=== PATIENT | male | born 1980 ===

== ENCOUNTER 2025-09-25 10:19 | Day surgery (SDC) | payer OTHER, SELFPAY ==
[2025-09-19 15:49] VITALS: BMI 30.7
[2025-09-20 16:25] VITALS: BMI 29.7
--- NOTE | 2025-09-25 | ECG_ITS ---
Test Reason : PREOP Blood Pressure : */* mmHG Vent. Rate : 139 BPM Atrial Rate : 139 BPM P-R Int : 134 ms QRS Dur : 86 ms QT Int : 282 ms P-R-T Axes : 32 27 42 degrees QTcB Int : 429 ms Sinus tachycardia Otherwise normal ECG No previous ECGs available Referred By: Herminia Gamino Electronically Signed By: ROSA YE
[2025-09-25 10:30] VITALS: BP 138/92; PULSE 132; RESP 20; TEMP 36.4; O2SAT 97
--- NOTE | 2025-09-25 11:03 | PC.NURSE ---
chrissy hr 130s-150s denies c/p denies dizziness sts hr elevated since last night. seen by pcp and end polisher echo, ekg,ct chest and stress tested completed by cardiollogist dr kay aware ekg ordered. pt aware pwd nad
--- NOTE | 2025-09-25 11:17 | PC.NURSE ---
pt resting comfortably on his phone denies c/p/sob/dizziness ekg completed
--- NOTE | 2025-09-25 11:22 | PC.NURSE ---
pt last dose of propanolol was 3 days ago stop using sts doesnot work everyone
--- NOTE | 2025-09-25 13:16 | HO.ANESPROP2 ---
HPI - Anesthesia Eval Consult details Narrative: 45 yo M presenting for bilateral eye muscle surgery FOR[facility]LY [facility] Past Medical History Medical History (Updated 09/20/25 @ 16:31 by Connie Cano, JOSEPH) Disorder of right median nerve Obesity (BMI 30.0-34.9) Prediabetes Panic disorder Moderate obstructive sleep apnea Mild cognitive impairment MDD (major depressive disorder), recurrent episode, moderate Insomnia Hypertriglyceridemia Erectile dysfunction Allergic rhinitis Anxiety GERD (gastroesophageal reflux disease) Tachycardia HTN (hypertension) Syncope Chest pain Family History Family history of problems with anesthesia: No Surgical History Surgical History (Updated 09/19/25 @ 15:49 by Connie Cano, RN) History of hip surgery Hx of right inguinal hernia repair Hx of cervical spine surgery History of Problems with Anesthesia: No Social History Social History (Updated 09/20/25 @ 16:27 by Connie Cano, RN) Are you a primary home child care provider to a significant other at home: No Do you presently have visiting nurse or other home services: No Patient Tobacco Use Status: Former Tobacco user Tobacco use type: Cigarette Smoked in Last 30 Days: No Use of substances other than those prescribed or required for medical reasons: No Have you been hit, kicked, punched, or otherwise hurt by someone within the past year? If so, by whom?: No Are you DNR?: No Advance Directives: No (will bring dos) Advance Directives Information Provided: Yes Advance Directives on File: No Meds Allergies Allergy/AdvReac Type Severity Reaction Status Date / Time No Known Allergies Allergy Verified 09/19/25 15:43 Home Medications ?Medication ?Instructions ?Recorded ?Confirmed ?Last Taken ?Type bupropion HCl 100 mg tablet,12 hr 100 mg PO DAILY 09/19/25 09/19/25 09/25/25 History sustained-release cholecalciferol (vitamin D3) 25 25 mcg PO DAILY 09/19/25 09/19/25 09/24/25 History mcg (1,000 unit) tablet (Vitamin D3) cyanocobalamin (vitamin B-12) 1,000 mcg PO DAILY 09/19/25 09/19/25 09/24/25 History 1,000 mcg tablet (Vitamin B-12) fexofenadine 180 mg tablet 180 mg PO DAILY 09/19/25 09/19/25 09/24/25 History mirtazapine 15 mg tablet 15 mg PO BEDTIME 09/19/25 09/19/25 09/24/25 History omeprazole 20 mg capsule,delayed 20 mg PO DAILY 09/19/25 09/19/25 09/25/25 History release quetiapine 400 mg tablet,extended 400 mg PO BEDTIME 09/19/25 09/19/25 09/24/25 History release 24 hr propranolol 10 mg tablet 10 mg PO BID 09/25/25 09/25/25 09/22/25 History Exam Exam Date and Time: 09/25/25 1245 Height,Weight and Vital Signs: Height 6 ft 1 in Weight 102.058 kg Last Vital Signs Temp 97.5 F 09/25/25 10:30 Pulse 132 H 09/25/25 10:30 Resp 20 09/25/25 10:30 BP 138/92 H 09/25/25 10:30 Pulse Ox 97 09/25/25 10:30 O2 Del Method Room Air 09/25/25 10:30 Airway Mallampati Class: III TM Dist: <=3cm Neck ROM: Full Loose/Missing/Broken Teeth: No (patient denies any loose or broken teeth) Heart: S1S2 Lungs: CTAB Assessment and Plan Assessment Anesthesia Assessment: Anesthesia Plan Discussed and Chart Reviewed Final Anesthetic Review Family History of Problems with Anesthesia: No History of Problems with Anesthesia: No NPO: Yes ASA Class: II Final Preanesthetic Review: No Changes in Pt Med Stat, Meds/Allgs Chart Reviewed, Consent Obtained/Reviewed and Anes Risks/Benef Reviewed Patient Risk: Low Procedure Risk: Low Anesthetic Plan Anesthetic Plan: GA and Agree w/ Assess. and Plan Disposition: Standard PACU
[2025-09-25 13:49] VITALS: BP 125/84; PULSE 109; RESP 16; TEMP 36.4; O2SAT 100
[2025-09-25 13:50] VITALS: BP 144/86; PULSE 101; RESP 16; O2SAT 100
[2025-09-25 13:55] VITALS: BP 130/89; PULSE 101; RESP 16; O2SAT 100
[2025-09-25 14:00] VITALS: BP 122/87; PULSE 113; RESP 16; O2SAT 99
--- NOTE | 2025-09-25 14:05 | P.OPHTHAL_ITS ---
Ophthalmology Operative Note Date of Service: 09/25/25 Narrative: Diagnosis esotropia. Postoperative diagnosis same. Procedure bilateral medial rectus recessions of 3.[address] Luz. Anesthesia general. Complications none. The patient was brought to the operating room placed under general anesthesia. The eyes were prepped and draped in the usual sterile ophthalmic fashion. A lid speculum was placed in the right eye and a [place] incision was created around the medial rectus. The muscle was hooked and secured with a double-armed Vicryl suture. It was disinserted from the globe and reattached to a position 3.5 mm behind the original insertion. Conjunctiva was closed with interrupted Vicryl sutures. An identical procedure was then performed in the left eye. The patient was then awoken from general anesthesia and discharged to postoperative recovery in good condition.
[2025-09-25 14:18] VITALS: BP 128/95; PULSE 107; RESP 18; O2SAT 95
== END 2025-09-25 14:54 | disposition home or self-care (01) ==
PROVIDERS: PCP Internal Medicine Sports Medicine; Visit Provider Ophthalmology
PROC: (CPT 67311; principal; 2025-09-25 13:20)
DX: H53.2 Diplopia (principal); H50.00 Unspecified esotropia; I10 Essential (primary) hypertension; E78.1 Pure hyperglyceridemia; R73.03 Prediabetes; E55.9 Vitamin D deficiency, unspecified; E53.8 Deficiency of other specified B group vitamins; J30.9 Allergic rhinitis, unspecified; R55 Syncope and collapse; F33.1 Major depressive disorder, recurrent, moderate; F41.9 Anxiety disorder, unspecified; K21.9 Gastro-esophageal reflux disease without esophagitis; G31.84 Mild cognitive impairment of uncertain or unknown etiology; G47.33 Obstructive sleep apnea (adult) (pediatric); Z79.899 Other long term (current) drug therapy; Z99.89 Dependence on other enabling machines and devices; Z80.0 Family history of malignant neoplasm of digestive organs; Z98.890 Other specified postprocedural states; Z87.891 Personal history of nicotine dependence
CPT/HCPCS: 67311; 93005; J1100; J1885; J2003; J2405; J2704; J3010

== ENCOUNTER → 2025-09-25 11:11 | Outpatient (BNV) | payer OTHER, SELFPAY | PROVIDERS: PCP Internal Medicine Sports Medicine; Visit Provider Internal Medicine | DX: R00.0 Tachycardia, unspecified (principal) | CPT/HCPCS: 93010 ==